=== PATIENT | male | born 1985 | race Caucasian/White ===

== ENCOUNTER 2020-03-19 12:54 | Inpatient (IN) | payer BC ==
[2020-03-19] MEDS ORDERED: IV FLUID CONTINUATION 1,000 ML IV ONE (14:27)
[2020-03-19] MEDS ORDERED: BIVALIRUDIN 250 MG in SODIUM CHLORIDE 0.9% 50 ML IV ONE (15:15)
[2020-03-19] MEDS ORDERED: LIDOCAINE 1% INJ 10MG/ML (20 ML MDV) SQ ONE (15:15)
[2020-03-19] MEDS ORDERED: MIDAZOLAM 2 MG/2 ML VIAL IV ONE (15:15)
[2020-03-19] MEDS ORDERED: CLOPIDOGREL 75 MG TAB PO ONE (15:17)
[2020-03-19] MEDS ORDERED: BIVALIRUDIN BOLUS 250 MG/50 ML IV ONE (15:17)
[2020-03-19] MEDS ORDERED: ATROPINE SULFATE 0.1 MG/ML 10ML SYRINGE IV PRN (15:31)
[2020-03-19] MEDS ORDERED: ZOLPIDEM 5 MG TAB PO PRN (15:31)
[2020-03-19] MEDS ORDERED: NITROGLYCERIN SL TABS 0.4 MG TAB SUBLINGUAL PRN (15:31)
[2020-03-19] MEDS ORDERED: MAG HYDROX/AL HYDROX/SIMETH 30 ML CUP PO PRN (15:31)
[2020-03-19] MEDS ORDERED: RX INFO: IV CONTRAST WAS GIVEN 1 EACH MISC MISCELLANE PRN (15:31)
[2020-03-19] MEDS ORDERED: IOPAMIDOL-370 125ML BTL INJ ONE (15:33)
[2020-03-19] MEDS ORDERED: SODIUM CHLORIDE 0.9% 1,000 ML IV SCH (15:45)
[2020-03-19 16:46] VITALS: RESP 16
--- NOTE | 2020-03-19 18:02 | PTCA ---
PERCUTANEOUSTRANS CORORONARY ANGIOGRAPHY DATE OF SERVICE: 03/19/2020 PERFORMING PHYSICIAN: Korey Lopez M.D. PROCEDURE PERFORMED: Successful stenting of the mid left circumflex coronary artery using a 4.0 x 15 mm Xience drug-eluting stent with an excellent angiographic result and reduction of stenosis from 90% to 0%. INDICATION: This is a pleasant 34-year-old gentleman who was admitted to [facility] [place] with chest discomfort and ruled in for acute non-STEMI. He was seen by Dr. Grider, who performed a heart catheterization over there, and that revealed critical disease involving the mid left circumflex. The left circumflex was a large-caliber vessel. The decision was made to transfer the patient for percutaneous coronary intervention. APPROACH: Right common femoral artery. COMPLICATIONS: None. LEVEL OF SEDATION: Moderate, with sedation length of 15 minutes. PROCEDURE DESCRIPTION: After obtaining informed consent, the patient was brought to the cardiac laboratory engineer. Please refer to diagnostic heart catheterization that was performed by Dr. rGider earlier today. I did exchange the old 6-[place] 11 cm sheath over an 0.035 wire for a new sheath. Anticoagulation was achieved using Angiomax with bolus and drip. The left main was engaged using JL4 guide. The left circumflex was wired using a run- through wire. Predilatation was performed using a 3.0 x 12 mm balloon before I deployed a 4.0 x 15 mm Xience BANDAR where the stent was positioned under fluoroscopic guidance and deployed under its nominal pressure. The following angiogram showed good angiographic results and the procedure was completed without any complication. POST-PROCEDURE MANAGEMENT: 1. Dual anti-platelet therapy. 2. Risk factor modifications. 3. Follow up with the patient. MMODL / IJN: [id number] /
[2020-03-19] MEDS ORDERED: ATORVASTATIN 80 MG TAB PO SCH (21:00)
[2020-03-19] MEDS: METOPROLOL TARTRATE 25 MG TAB PO SCH (22:37)
[2020-03-20 08:39] LABS: African American GFR (CKD) >90 (>60 ml/min/1.73 sqM); Non-African American GFR(CKD) >90 (>60 ml/min/1.73 sqM)
[2020-03-20] MEDS ORDERED: ASPIRIN 325 MG TAB PO SCH (09:00)
[2020-03-20] MEDS ORDERED: CLOPIDOGREL 75 MG TAB PO SCH (09:00)
[2020-03-20] MEDS: METOPROLOL TARTRATE 25 MG TAB PO SCH (09:27)
[2020-03-20 10:18] VITALS: BMI 40.2
[2020-03-20 10:45] VITALS: BP 154/97; PULSE 77; TEMP 98.8
== END 2020-03-20 12:52 | disposition home or self-care (01) | DRG 247 ==
LOC: 2ORMAIN 13:36 → 3SCARD 15:35
PROVIDERS: ADMIT Internal Medicine Cardiovascular Disease; ATTEND Internal Medicine Cardiovascular Disease
PROC: 027034Z Dilation of Coronary Artery, One Artery with Drug-eluting Intraluminal Device, Percutaneous Approach (ICD-10-PCS; principal; 2020-03-19 16:55)
DX: I21.4 Non-ST elevation (NSTEMI) myocardial infarction (principal); I25.10 Atherosclerotic heart disease of native coronary artery without angina pectoris
CPT/HCPCS: 82565